=== PATIENT | female | born 1980 | race Caucasian/White ===

== ENCOUNTER 2019-05-20 11:42 | Emergency (ER) | payer OTHER, MEDICAID ==
[~2019-05-20] VITALS: Ht 167.6 cm; Wt 59.0 kg
[~2019-05-20 11:42] MED LIST: AMOXICILLIN 50500 MG PO; B COMPLEX-VITA1 EACH PO; B-100 COMPLEX1 EAC1 PO; BALSALAZIDE DI750 M1 PO; BENZTROPINE MES1 MG PO; BUPROPION HCL200 MG PO; BUSPAR 5 MG TABL5 M1; BUSPAR 5 MG TABL5 M1 PO; BUSPIRONE HCL5 MG PO; C-10001000 M1 PO; CALCIUM 1,0001 EACH PO; CALCIUM 600 +1 EAC1 PO; CELEXA20 MG PO; CIPROFLOXACIN500 M1 PO; CIPROFLOXACIN500 M3; DESYREL100 MG; DOXYCYCLINE 10100 MG PO; DUOFER 28 MG TA28 MG PO; FLAGYL500 MG PO; FOLIC ACID1 MG PO; HYDROCODON-ACE1 EAC7 PO; HYDROCODONE-AP1 EAC6 PO; IMURAN 50MG TAB50 M1 PO; KEPPRA 500 MG500 M1 PO; LAMICTAL100 MG PO; LORATIDINE 10 M10 M1 PO; MIRTAZAPINE15 M1 PO; MULTIVITAMINS PO; NEXIUM20 MG PO; NORCO 5-325 TA1 EACH PO; OMEPRAZOLE20 M2 PO; ONE A DAY VITAMIN; OXYCODONE-ACET1 EACH; PAROXETINE HCL40 MG; PENTASA500 MG PO; PERCOCET 5-3251 EACH PO; POTASSIUM99 M1 PO; PREDNISONE 10 M10 M1 PO; QUETIAPINE FUM100 MG PO; REMERON15 MG PO; SYMBICORT160 MCG/4. INH; THERA-M CAPLET1 EACH PO; TRAZODONE HCL50 MG PO; TYLENOL325 MG PO; VENLAFAXIN75 MG/1 T2 PO; VENTOLIN HFA 1818 GM INH; VISTARIL 25 MG25 M1 PO; VITAMIN B 6 PO; VITAMIN B-6100 MG PO; VITAMIN E400 UNIT PO; VITAMINC500 PO; WELLBUTRIN SR200 MG PO; ZOFRAN ODT4 MG PO; ZOFRAN4 MG; ZOFRAN4 MG PO; ZOLOFT 50 MG TA50 M1 PO
[2019-05-20] MEDS ORDERED: NAPROSYN500 MG PO (13:05)
[2019-05-20 13:31] VITALS: BP 124/72
== END 2019-05-20 13:31 | disposition home or self-care (01) ==
LOC: M.ERS 11:42
DX: S00.12XA Contusion of left eyelid and periocular area, initial encounter (principal); S00.83XA Contusion of other part of head, initial encounter; K21.9 Gastro-esophageal reflux disease without esophagitis; F32.9 Major depressive disorder, single episode, unspecified; K50.90 Crohn's disease, unspecified, without complications; J45.909 Unspecified asthma, uncomplicated; Z86.2 Personal history of diseases of the blood and blood-forming organs and certain disorders involving the immune mechanism; Z90.89 Acquired absence of other organs; Z90.49 Acquired absence of other specified parts of digestive tract; Z88.8 Allergy status to other drugs, medicaments and biological substances; W18.39XA Other fall on same level, initial encounter; Y92.89 Other specified places as the place of occurrence of the external cause; Y93.89 Activity, other specified; Y99.8 Other external cause status